=== PATIENT | female | born 1970 | race African-American/Black ===

== ENCOUNTER 2022-10-06 10:23 | Emergency (ER) | payer OTHER ==
[~2022-10-06] VITALS: Ht 167.6 cm; Wt 68.0 kg
[~2022-10-06 10:23] MED LIST: ALBU18HF2 IH; HYDR-4009 MT; LOSA100T32 MT
[2022-10-06] MEDS ORDERED: KETOROLAC 15MG/ML VIAL IV ONE (12:15)
[2022-10-06] MEDS ORDERED: FAMOTIDINE 20MG/2ML VIAL IV ONE (12:15)
[2022-10-06] MEDS ORDERED: SODIUM CHLORIDE 0.9% 1,000 ML IV ONE (12:15)
[2022-10-06 12:30] LABS: HEMATOCRIT. 40.3 % (36.0-48.0); MEAN CORPUSCULAR HEMOGLOBIN 32.8 pg (28.0-32.0); MEAN CORPUSCULAR VOLUME 94.5 fL (81.0-99.0); MEAN PLATELET VOLUME 8.3 fl (7.4-10.4); PLATELET 259 x1000/uL (130-400); RED BLOOD CELL COUNT 4.27 mill/uL (4.2-5.4)
[2022-10-06 13:37] LABS: CHLORIDE 100 mEq/L (98-107)
[2022-10-06] MEDS ORDERED: IOHEXOL-350 100 ML BOTTLE ONE (16:34)
[2022-10-06] MEDS ORDERED: SODIUM CHLORIDE 0.9% 1,000 ML IV NR (18:00)
[2022-10-06] MEDS ORDERED: ACETAMINOPHEN 325MG TABLET PO NR (18:00)
[2022-10-06] MEDS ORDERED: CYCLOBENZAPRINE 10MG TABLET PO NR (18:00)
[2022-10-06 18:39] LABS: CLARITY URINE CLEAR (CLEAR); COLOR URINE YELLOW (YELLOW); KETONES URINE NEGATIVE (NEGATIVE); LEUKOCYTE ESTERASE URINE NEGATIVE (NEGATIVE); NITRITE URINE NEGATIVE (NEGATIVE); OCCULT BLOOD URINE NEGATIVE (NEGATIVE); PH URINE 5.5 (4.5-8.0); PROTEIN URINE 1+ (NEGATIVE); SPECIFIC GRAVITY URINE >1.040 (1.005-1.030); UROBILINOGEN URINE 0.2 E.U./dL (0.2-1.0)
[2022-10-06] MEDS ORDERED: LORAZEPAM 1MG TABLET PO ONE (22:00)
[2022-10-06] MEDS ORDERED: AMLODIPINE 5MG TABLET PO ONE (22:00)
[2022-10-06] MEDS ORDERED: IBUP-2028 MT (22:12)
[2022-10-06] MEDS ORDERED: LOSA100T32 MT (22:12)
[2022-10-07] VITALS: BP 164/88
[2022-10-07 06:33] LABS: PLATELET ESTIMATE NORMAL
== END 2022-10-07 01:32 | disposition home or self-care (01) ==
LOC: ER 10:23
DX: M54.9 Dorsalgia, unspecified (principal); R10.9 Unspecified abdominal pain; J45.909 Unspecified asthma, uncomplicated; E11.9 Type 2 diabetes mellitus without complications; I10 Essential (primary) hypertension; J44.9 Chronic obstructive pulmonary disease, unspecified; Z99.81 Dependence on supplemental oxygen
CPT/HCPCS: 36415; 71275; 74174; 80053; 81003; 82962; 83690; 84484; 85025; 85610; 96361; 96374; 96375; 99285; J1885; J3490; J7030; Q9967; Z7610

== ENCOUNTER 2023-07-06 10:47 | Emergency (ER) | payer MEDICAID, OTHER ==
[~2023-07-06] VITALS: Ht 167.6 cm; Wt 115.0 kg
[~2023-07-06 10:47] MED LIST changes: +IBUP-2028 MT; -LOSA100T32 MT; +LOSA100T33 MT
[2023-07-06 10:49] VITALS: O2SAT 98
[2023-07-06] MEDS ORDERED: ONDANSETRON HCL 4MG/2ML INJ IV STA (11:10)
[2023-07-06] MEDS ORDERED: KETOROLAC 30MG/ML VIAL IV STA (11:10)
[2023-07-06] MEDS ORDERED: SODIUM CHLORIDE 0.9% 1,000 ML IV ONE (11:15)
[2023-07-06 12:10] LABS: BASOPHILS % 0.7 % (0.0-2.0); EOSINOPHILS % 1.4 % (0.0-5.0); HEMATOCRIT. 42.3 % (36.0-48.0); HEMOGLOBIN. 14.4 g/dL (12.0-16.0); LYMPHOCYTES % 15.9 % (20.0-50.0); MEAN CORPUSCULAR HEMOGLOBIN 31.6 pg (28.0-32.0); MEAN CORPUSCULAR HGB CONC 34.2 g/dL (31.0-37.0); MEAN CORPUSCULAR VOLUME 92.4 fL (81.0-99.0); MEAN PLATELET VOLUME 7.4 fl (7.4-10.4); MONOCYTES % 4.2 % (2.0-8.0); NEUTROPHILS % 77.8 % (40.0-76.0); PLATELET 252 x1000/uL (130-400); RED BLOOD CELL COUNT 4.58 mill/uL (4.2-5.4); WHITE BLOOD COUNT 8.5 x1000/uL (4.5-11.0)
[2023-07-06 12:29] LABS: ALBUMIN 3.6 g/dL (3.4-5.0); CALCIUM 9.2 mg/dL (8.5-10.1); CARBON DIOXIDE 29 mEq/L (21-32); CHLORIDE 104 mEq/L (98-107); GLUCOSE 144 mg/dL (70-105); INDEX HEMOLYSI 1 (1-3); INDEX ICTERIC 1 (1-4); INDEX LIPEMIC 1 (1-3); POTASSIUM 3.1 mEq/L (3.5-5.1); SODIUM 141 mEq/L (136-145); UREA NITROGEN BLOOD 5 mg/dL (7-21)
[2023-07-06 12:34] LABS: ALANINE AMINOTRANSFERASE 36 IU/L (13-61); ASPARTATE AMINOTRANSFERASE 19 IU/L (15-37); BILIRUBIN TOTAL 0.3 mg/dL (0.1-1.0); CREATININE 0.7 mg/dL (0.6-1.3); PROTEIN TOTAL 7.9 g/dL (6.0-8.3)
[2023-07-06] MEDS ORDERED: ONDA4TAB50 MT (12:53)
[2023-07-06] MEDS ORDERED: OMEP40CA20 MT (12:53)
[2023-07-06] MEDS ORDERED: POTASSIUM CHLORIDE 20MEQ TABLET SR PO ONE (13:00)
[2023-07-06] MEDS ORDERED: ONDANSETRON HCL 4MG/2ML INJ IV NR (13:30)
[2023-07-06] MEDS ORDERED: KETOROLAC 30MG/ML VIAL IV NR (13:30)
[2023-07-06 14:43] VITALS: BP 122/83; PULSE 92; RESP 16; TEMP 97.9
[2023-07-06] MEDS ORDERED: MAGNESIUM/ALUMINUM HYDROXIDE/SIMETHICONE 30ML UDC PO STA (14:43)
[2023-07-06] MEDS ORDERED: ACETAMINOPHEN 325MG TABLET PO STA (14:43)
== END 2023-07-06 15:34 | disposition home or self-care (01) ==
LOC: ER 11:04
DX: R10.33 Periumbilical pain (principal); R11.2 Nausea with vomiting, unspecified; J44.9 Chronic obstructive pulmonary disease, unspecified; E11.9 Type 2 diabetes mellitus without complications; I10 Essential (primary) hypertension; Z79.899 Other long term (current) drug therapy
CPT/HCPCS: 99285; 74176; 96374; 96361; 96375; 80053; 83690; 85025; 36415; J1885; J2405; J7030

== ENCOUNTER 2023-07-06 15:55 | Emergency (ER) | payer MEDICAID ==
[~2023-07-06] VITALS: Ht 167.6 cm; Wt 100.0 kg
[~2023-07-06 15:55] MED LIST changes: +OMEP40CA20 MT; +ONDA4TAB50 MT
[2023-07-06 16:08] VITALS: BP 169/84; PULSE 99; RESP 20; TEMP 98.7; O2SAT 100
[2023-07-06] MEDS ORDERED: ONDANSETRON 4MG ODT PO ONE (16:15)
== END 2023-07-06 17:05 | disposition left against medical advice (07) ==
LOC: ER 16:01
DX: R11.2 Nausea with vomiting, unspecified (principal)
CPT/HCPCS: 99283; Q0162